=== PATIENT | male | born 1975 | race Hispanic/Latino ===

== ENCOUNTER 2024-04-30 07:46 | Emergency (ER) | payer SELFPAY ==
--- OUTSIDE RECORDS SUMMARY | 2024-04-30 07:51 | XMS REPORT | Continuity of Care Document ---
Author Name Unknown Address [address] [facility] [address] [place] [address] [email or web address] Address [address] [facility] [address] [place] [address] Care Team Providers Care Stucco Plasterer Name Role Phone PCP, PATIENT DOES NOT HAVE A Primary Care Physic lm Unavailable ADELINA VAZQUEZ Attending Clinician Unavailab Adelina Blackwell DO Attending Clinician [phone] OSIRIS DEE Attending Clinician Unavailable Osiris Nevarez Attending Clinician [phone] Jono France MD Attending Clinician [phone] JONO FRANCE Attending Clinician Unavailable ADELINA VAZQUEZ Admitting Clinician Unavailab JONO Trejo Admitting Clinician Unavailable Payers Payer Name Policy Type Policy Number Effective Date Expirati on Date Source MEDICAID ALIEN PENDING PENDING 2022 00:00:00 Problems Condition Name Condition Details Condition Category Status Onset Date Resolution Date Last Treatment Date Treating Clinician Comments Source No known active problems No known active problems Disease [facility] Allergies, Adverse Reactions, Alerts Allergy Name Allergy Type Status Severity Reaction(s) Onset Date Inactive Date Treating Clinician Comments Source NO KNOWN ALLERGIE S Drug Class Active [facility] Social History Social Habit Start Date Stop Date Quantity Comments Source Exposure to SARS-CoV-2 (event) 2022-07-12 00:00:00 2022-07-22 08:12:00 Not sure [facility] Sex Assigned At 1975 00:00:00 1975 00:00:00 [facility] Smoking Status Start Date Stop Date Source Tobacco smoking consumption unknown [facility] Medications Ordered Medication Name Filled Medication Name Start Date Stop Date Current Medication? Ordering Clinician Indication Dosage Frequency Signature (SIG) Comments Components Source ketorolac (TORADOL) injection 30 mg 2021-10 13:45: 00 07-22 12:55 :00 No 30mg 30 mg, Slow IV Push, ONCE, 1 dose, On Mon07/22/22 at 0845, Routine [facility] ketorolac 10 mg tablet 2021-10 00:00: 00 Yes [id number] 10mg Take 1 tablet by mouth every 6 (six) hours as needed for Pain (scale 1-3). [facility] fluticasone propionate 50 mcg/actuati on nasal spray 11-22 00:00: 00 12-07 05:59 :00 No [id number] 2{spray } Use 2 Sprays in each nostril daily for 14 days. [facility] amoxicillin -clavulanat e 875-125 mg per tablet 11-22 00:00: 00 11-30 05:59 :00 No [id number] 1{tbl} Take 1 tablet by mouth every 12 (twelve) hours for 7 days. [facility] ketorolac (TORADOL) injection 30 mg 01-14 18:00: 00 01-14 17:08 :00 No 30mg 30 mg, Slow IV Push, ONCE, 1 dose, Mon01/15/20 at 1300, Routine
bridge crew member approving Restricted medication : JONO FRANCE [facility] acetaminoph en-codeine (TYLENOL-CO DEINE #3) 300-30 mg tablet 01-14 00:00: 00 Yes [id number] 1{tbl} Take 1 tablet by mouth every 6 (six) hours as needed for Pain (scale 4-6). [facility] tamsulosin 0.4 mg 24 hr capsule 01-14 00:00: 00 Yes [id number] .4mg Take 1 capsule by mouth at bedtime. [facility] ketorolac 10 mg tablet 2020-0 4-15 00:00: 00 01-20 04:59 :00 No [id number] 10mg Take 1 tablet by mouth every 6 (six) hours as needed for Pain (scale 4-6) for up to 5 days. [facility] Vital Signs Vital Name Observation Time Observation Value Comments Waqas llamas Systolic blood pressure 2022-07-22 12:49:00 131 mm[Hg] [facility] Diastolic blood pressure 2022-07-22 12:49:00 82 mm[Hg] [facility] Heart rate 2022-07-22 12:49:00 93 /min [facility] Body temperature 2022-07-22 12:49:00 36.67 Sonia [facility] Respiratory rate 2022-07-22 12:49:00 18 /min [facility] Body weight 2022-07-22 12:49:00 69.854 kg [facility] BMI 2022-07-22 12:49:00 25.66 kg/m2 [facility] Oxygen saturation in Arterial blood by Pulse oximetry 2022-07-22 12:49:00 99 /min [facility] Systolic blood pressure 2021-11-22 16:12:00 145 mm[Hg] [facility] Diastolic blood pressure 2021-11-22 16:12:00 86 mm[Hg] [facility] Heart rate 2021-11-22 16:12:00 76 /min [facility] Body temperature 2021-11-22 16:12:00 36.44 Sonia [facility] Respiratory rate 2021-11-22 16:12:00 18 /min [facility] Body weight 2021-11-22 16:12:00 69.854 kg [facility] BMI 2021-11-22 16:12:00 25.66 kg/m2 [facility] Oxygen saturation in Arterial blood by Pulse oximetry 2021-11-22 16:12:00 99 /min [facility] Systolic blood pressure 2020-01-15 18:33:18 131 mm[Hg] [facility] Diastolic blood pressure 2020-01-15 18:33:18 93 mm[Hg] [facility] Heart rate 2020-01-15 18:33:18 67 /min [facility] Respiratory rate 2020-01-15 18:33:18 16 /min [facility] Oxygen saturation in Arterial blood by Pulse oximetry 2020-01-15 18:33:18 97 /min [facility] Body temperature 2020-01-15 16:37:00 36 Sonia [facility] Body height 2020-01-15 16:37:00 165 cm [facility] Body weight 2020-01-15 16:37:00 70 kg [facility] BMI 2020-01-15 16:37:00 25.71 kg/m2 [facility] Procedures Procedure Date / Time Performed Performing Clinician Source CT ABDOMEN PELVIS WO CONTRAST 2022-07-22 13:12:45 Adelina Vazquez [facility] COMP. METABOLIC PANEL ([id number]) 2022-07-22 12:53:00 Adelina Vazquez [facility] CBC WITH DIFF 2022-07-22 12:53:00 [facility]22-07-22 12:53:00 [facility] TREATMENT 2022-07-22 12:44:21 Doctor Unassigned, Kiana [facility] CONSENT/REFUSAL FOR DIAGNOSIS AND TREATMENT 2021-11-22 16:08:38 Doctor Unassigned, Kiana [facility] NOTICE OF PRIVACY PRACTICES 2021-11-22 16:08:13 Doctor Unassigned, Kiana [facility] CT ABDOMEN PELVIS WO CONTRAST 2020-01-15 18:20:32 Jono France [facility] BASIC METABOLIC PANEL (NA, K, CL, CO2, GLUCOSE, BUN, CREATININE, CA) 2020-01-15 17:07:00 Jono France [facility] CBC WITH DIFFERENTIAL 2020-01-15 17:07:00 Jono France [facility] URINALYSIS 2020-01-15 17:02:00 Jono France [facility] Encounters Start Date/Time End Date/Time Encounter Type Admission Type Attending Clinicians Care Facility Care Department Encounter ID Source 2023-11-01 10:52:20 2023-11-01 10:52:20 Outpatient [facility] [id number] Raheel Tejeda 2022-07-22 07:52:00 2022-07-22 09:55:00 Emergency X ADELINA VAZQUEZ [facility] ERT [id number] [facility] 2022-07-22 07:52:00 2022-07-22 09:55:00 Emergency Adelina Vazquez [facility] [id number] [facility] 2021-11-22 10:17:00 2021-11-22 11:22:00 Emergency OSIRIS PEGUERO [facility] ERT [id number] [facility] 2021-11-22 10:17:00 2021-11-22 11:22:00 Emergency Osiris Dee [facility] [id number] [facility] 2020-01-15 11:36:00 2020-01-15 13:45:00 Emergency Jono France [facility] [id number] [facility] 2020-01-15 11:36:00 2020-01-15 13:45:00 Emergency X JONO FRANCE [facility] ERT [id number] [facility] Results Test Description Test Time Test Comments Results Result Co mments Source [facility] [id number] 13:06:45* Test Item Value Reference Range Interpretation Comme nts WBC (test code = 6690-2) See_Comment [Automated messa ge] The system which generated this result transmitted reference range: 4.20 - 10.70 10*3/?L. The reference range was not used to interpret this result as normal/abnormal. RBC (test code = 789-8) See_Comment [Automated [employer]] The system which generated this result transmitted reference range: 4.26 - 5.52 10*6/?L. The reference range was not used to interpret this result as normal/abnormal. HGB (test code = 718-7) 16.0 g/dL 12.2-16.4 HCT (test code = 4544-3) 45.2 % 38.4-49.3 MCV (test code = 787-2) 85.3 fL 81.7-95.6 MCH (test code = 785-6) 30.2 pg 26.1-32.7 MCHC (test code = 786-4) 35.4 g/dL 31.2-35 H RDW-SD (test code = 62569-5) 36.5 fL 38.5-51.6 L RDW-CV (test code = 788-0) 11.8 % 12.1-15.4 L PLT (test code = 777-3) See_Comment [Automated [employer]] The system which generated this result transmitted reference range: 150 - 328 10*3/?L. The reference range was not used to interpret this result as normal/abnormal. MPV (test code = 73379-9) 8.9 fL 9.8-13 L NRBC/100 WBC (test code = 0389984867) See_Comment [Automated [employer] ssage] The system which generated this result transmitted reference range: 0.0 - 10.0 /100 WBCs. The reference range was not used to interpret this result as normal/abnormal. NRBC x10^3 (test code = 1480797796) See_Comment [Automated [employer]] The system which generated this result transmitted reference range: 10*3/?L. The reference range was not used to interpret this result as normal/abnormal. GRAN MAT (NEUT) % (test code = 770-8) 66.8 % IMM GRAN % (test code = 4185831537) 0.30 % LYMPH % (test code = 736-9) 20.5 % MONO % (test code = 5905-5) 8.6 % EOS % (test code = 713-8) 3.0 % BASO % (test code = 706-2) 0.8 % GRAN MAT x10^3(ANC) (test code = 3108705303) 4.04 10*3/uL 1.99-6.95 IMM GRAN x10^3 (test code = 1411448157) 0-0.06 LYMPH x10^3 (test code = 731-0) 1.24 10*3/uL 1.09-3.23 MONO x10^3 (test code = 742-7) 0.52 10*3/uL 0.36-1.02 EOS x10^3 (test code = 711-2) 0.18 10*3/uL 0.06-0.53 BASO x10^3 (test code = 704-7) 0.05 10*3/uL 0.01-0.09 Lab Interpretation (test code = 90261-9) [facility] [id number] 18:24:34CT Abdomen and Pelvis without contrast. CLINICAL HISTORY: Recurrent stone disease is suspected. TECHNIQUE: Multidetector helical CT acquisition was obtained from the lungbases to the greater trochanters without oral and IV contrast. ?The imageswere reviewed in lung, bone, and soft tissue windows. FI NDINGS: ?Absence of intravenous contrast limits evaluation of the solidorgans. Evaluation of the bowel is also limited by lack of oral contrast. Lower lungs: Clear. Liver, Gallbladder and Spleen: Hepatomegaly with mild diffuse hepaticsteatosis. Peritoneum: ?No free air or free fluid. No lymphadenopathy. Pancreas and Adrenals: ?Unremarkable pancreas and adrenal glands. Kidneys and Ureters: No right-sided kidney stones or obstructivehydronephrosis. 5 mm stone noted at left UVJ causing moderate obstructionwith hydronephrosis, hydroureter, mild enlargement of the left kidney,congestion of the perinephric and periureteric fat. No additional stones inthe left kidney.. ? Vessels: Normal. Retroperitoneum: No abnormal fluid or lymphadenopathy. Bowel: No acute findings. Normal appendix is visualized. Bladder ?and Reproductive Organs: Central zone prostate calcifications.Right testicle is located high in the inguinal canal which could be due toprone position. Bones: Shallow Schmorl's nodes in the lower thoracic vertebral endplates,likely as a result of axial loading trauma. Soft tissues: Unremarkable. CONCLUSION:1. 5 mm stone at left UVJ causing moderate obstruction. No additionalstones in the left kidney.2. No right-sided kidney stones or right-sided obstructive hydronephrosis. [facility], Radiant Results Inft User - 01/15/2020 1:25 PM CDTCT Abdomen and Pelvis without contrast.CLINICAL HISTORY: Recurrent stone disease is suspected.TECHNIQUE: Multidetector helical CT acquisition was obtainedfrom the lungbases to the greater trochanters without oral and IV contrast. The imageswere reviewedin lung, bone, and soft tissue windows.FINDINGS: Absence of intravenous contrast limits evaluation of the solidorgans. Evaluation of the bowel is also limited by lack of oral contrast. Lower lungs: Clear.Liver, Gallbladder and Spleen: Hepatomegaly with mild diffuse hepaticsteatosis.Peritoneum: No free air or free fluid. No lymphadenopathy.Pancreas and Adrenals: Unremarkable pancreas and adrenal gl ands.Kidneys and Ureters: No right-sided kidney stones or obstructivehydronephrosis. 5 mm stone noted at left UVJ causing moderate obstructionwith hydronephrosis, hydroureter, mild enlargement of theleft kidney,congestion of the perinephric and periureteric fat. No additional stones inthe left kidney.. Vessels: Normal.Retroperitoneum: No abnormal fluid or lymphadenopathy.Bowel: No acute findings. Normal appendix is visualized.Bladder and Reproductive Organs: Central zone prostate calcifications.Right testicle is located high in the inguinal canal which could be due toprone position. Bones: Shallow Schmorl's nodes in the lower thoracic vertebral endplates,likely as a result of axial loadingtrauma.Soft tissues: Unremarkable.CONCLUSION:1. 5 mm stone at left UVJ causing moderate obstruction. No additionalstones in the left kidney.2. No right-sided kidney stones or right-sided obstructive h ydronephrosis.[facility] [id number] 17:49:00* Test Item Value Reference Range Interpretation Comme nts APPEARANCE (test code = 7356368059) Hazy Clear A COLOR (test code = 4098980923) Yellow Yellow PH (test code = 6099994681) 4.8-8.0 SP GRAVITY (test code = 8381993651) 1.003-1.030 GLU U QUAL (test code = 8294198588) 50 mg/dL Normal A BLOOD (test code = 0075520938) 2+ Negative A KETONES (test code = 0268266964) Negative Negative PROTEIN (test code = 2887-8) 30 mg/dL Negative A UROBILIN (test code = 3160197699) Normal Normal BILIRUBIN (test code = 4928231259) Negative Negative NITRITE (test code = 7167897030) Negative Negative LEUK RICHY (test code = 6072137491) Negative Negative RBC/HPF (test code = 8652250399) See_Comment H [Automated messa ge] The system which generated this result transmitted reference range: 0 - 3 HPF. The reference range was not used to interpret this result as normal/abnormal. WBC/HPF (test code = 7453828559) See_Comment [Automated messa ge] The system which generated this result transmitted reference range: 0 - 5 HPF. The reference range was not used to interpret this result as normal/abnormal. BACTERIA (test code = 1116136870) Few Negative A MUCOUS (test code = 4021119539) Slight Negative LPF A SQ EPITH (test code = 1122276303) HPF UR AC FELIX (test code = 5040054493) See_Comment H [Automated messa ge] The system which generated this result transmitted reference range: <=1 HPF. The reference range was not used to interpret this result as normal/abnormal. HYAL CAST (test code = 1754571423) See_Comment H [Automated messa ge] The system which generated this result transmitted reference range: <=2 LPF. The reference range was not used to interpret this result as normal/abnormal. GRAN CASTS (test code = 5600244254) See_Comment H [Automated messa ge] The system which generated this result transmitted reference range: <=1 LPF. The reference range was not used to interpret this result as normal/abnormal. Lab Interpretation (test code = 12528-4) Abnormal [facility] Metabolic Panel (NA, K, CL, CO2, GLUCOSE, BUN, CREATININE, CA)2020-01-15 17:27:00* Test Item Value Reference Range Interpretation Comme nts NA (test code = 3049560936) 142 mmol/L 135-145 K (test code = 8008557575) 3.9 mmol/L 3.5-5 CL (test code = 0781760166) 108 mmol/L 98-108 CO2 TOTAL (test code = 1120224993) 21 mmol/L 23-31 L AGAP (test code = 4847137840) 2-16 BUN (test code = 9877995488) 10 mg/dL 7-23 GLUCOSE (test code = 7932034170) 195 mg/dL 70-110 H CREATININE (test code = 3577884935) 0.90 mg/dL 0.6-1.25 CALCIUM (test code = 6180893921) 9.1 mg/dL 8.6-10.6 eGFR Calculation (Non-) (test code = 6547842162) mL/min/1.73m2 eGFR Calculation () (test code = 3489757701) mL/min/1.73m2 HUMZA (test code = HUMZA) Association of Glomerular Filtration Rate (GFR) and Staging of Kidney Disease* + --+ --+ ------+| GFR (mL/min/1.73 m2) ?| With Kidney Damage ?| ?Without Kidney Damage+ --------+ --------+ +| ?>90 ?| ?Stage one ?| ? Normal ?+ ---+ ---+ -------+| ?60-89 ?| ?Stage two ?| ? Decreased GFR ? + --+ --+ ------+| ?30-59 ?| ?Stage three ?| ? Stage three ? + --+ --+ ------+| ?15-29 ?| ?Stage four ? | ? Stage four ?+ ---+ ---+ -------+| ?<15 (or dialysis) ? ?| ?Stage five ? | ? Stage five ?+ ---+ ---+ -------+ *Each stage assumes the associated GFR level has been in effect for at least three months. ?Stages 1 to 5, with or without kidney disease, indicate chronic kidney disease. Notes: Determination of stages one and two (with eGFR >59mL/min/1.73 m2) requires estimation of kidney damage for at least three months as defined by structural or functional abnormalities of the kidney, manifested by either:Pathological abnormalities or Markers of kidney damage (including abnormalities in the composition of the blood or urine or abnormalities in imaging tests). Lab Interpretation (test code = 08242-3) Abnormal [facility] WITH [id number] 17:20:00* Test Item Value Reference Range Interpretation Comme nts WBC (test code = 6690-2) See_Comment [Automated messa ge] The system which generated this result transmitted reference range: 4.20 - 10.70 10*3/?L. The reference range was not used to interpret this result as normal/abnormal. RBC (test code = 789-8) See_Comment [Automated messa ge] The system which generated this result transmitted reference range: 4.26 - 5.52 10*6/?L. The reference range was not used to interpret this result as normal/abnormal. HGB (test code = 718-7) 15.6 g/dL 12.2-16.4 HCT (test code = 4544-3) 44.0 % 38.4-49.3 MCV (test code = 787-2) 84.9 fL 81.7-95.6 MCH (test code = 785-6) 30.1 pg 26.1-32.7 MCHC (test code = 786-4) 35.5 g/dL 31.2-35 H RDW-SD (test code = 97500-0) 37.1 fL 38.5-51.6 L RDW-CV (test code = 788-0) 12.1 % 12.1-15.4 PLT (test code = 777-3) See_Comment [Automated messa ge] The system which generated this result transmitted reference range: 150 - 328 10*3/?L. The reference range was not used to interpret this result as normal/abnormal. MPV (test code = 36843-7) 8.5 fL 9.8-13 L NRBC/100 WBC (test code = 4360720955) See_Comment [Automated [employer] ssage] The system which generated this result transmitted reference range: 0.0 - 10.0 /100 WBCs. The reference range was not used to interpret this result as normal/abnormal. NRBC x10^3 (test code = 5120559705) <0.01 See_Comment [Automated messa ge] The system which generated this result transmitted reference range: 10*3/?L. The reference range was not used to interpret this result as normal/abnormal. GRAN MAT (NEUT) % (test code = 770-8) 77.6 % IMM GRAN % (test code = 2407589043) 0.90 % LYMPH % (test code = 736-9) 16.0 % MONO % (test code = 5905-5) 3.8 % EOS % (test code = 713-8) 1.2 % BASO % (test code = 706-2) 0.5 % GRAN MAT x10^3(ANC) (test code = 5125210094) 5.84 10*3/uL 1.99-6.95 IMM GRAN x10^3 (test code = 4573557367) 0.07 10*3/uL 0-0.06 H LYMPH x10^3 (test code = 731-0) 1.21 10*3/uL 1.09-3.23 MONO x10^3 (test code = 742-7) 0.29 10*3/uL 0.36-1.02 L EOS x10^3 (test code = 711-2) 0.09 10*3/uL 0.06-0.53 BASO x10^3 (test code = 704-7) 0.04 10*3/uL 0.01-0.09 Lab Interpretation (test code = 79364-5) Abnormal [facility]"
[2024-04-30 09:07] LABS: Specific Gravity 1.025 (1.005-1.030); Sqamous Epithelial <5 /HPF (None Seen); Urine Bacteria None Seen /HPF (<20); Urine Bilirubin NEGATIVE (Negative); Urine Blood Negative (Negative); Urine Clarity Clear (Clear); Urine Color Yellow (Yellow); Urine Culture Reflex Order NOT NEEDED; Urine Glucose 4+ (Over) (Negative); Urine Ketones NEGATIVE (Negative); Urine Microscopic Reflex YN ORDER UMIC; Urine Mucus Slight /HPF (None Seen); Urine Nitrite NEGATIVE (Negative); Urine Protein TRACE (Negative); Urine RBC <5 /HPF (None Seen); Urine Urobilinogen Normal (Normal); Urine WBC <5 /HPF (<5); Urine pH 5.5 (5.0-7.0)
--- NOTE | 2024-04-30 10:18 | ER ---
Nurse's Notes [facility] Name: Dash Auguste Age: 49 yrs Sex: Male : 1975 Arrival Date: 04/30/2024 Time: 07:46 Bed 18 Private MD: Diagnosis: Balanitis;Hyperglycemia, unspecified Presentation: 04/30 08:01 Chief complaint: Patient states: Reports pain to private area and "there's something ll1 down there". No fever or N/V/D. Coronavirus screen: Client denies travel out of the [place] in the last 14 days. At this time, the client does not indicate any symptoms associated with coronavirus-19. Ebola Screen: Patient denies travel to an Ebola-affected area in the 21 days before illness onset. Initial Sepsis Screen: Does the patient meet any 2 criteria? No. Patient's initial sepsis screen is negative. Does the patient have a suspected source of infection? No. Patient's initial sepsis screen is negative. Risk Assessment: Do you want to hurt yourself or someone else? Patient reports no desire to harm self or others. 08:01 Method Of Arrival: Ambulatory ll1 08:01 Acuity: HERMAN 4 ll1 Historical: - Allergies: 08:04 No Known Allergies; ll1 - PMHx: 08:04 None; ll1 - PSHx: 08:04 None; ll1 - Immunization history:: Adult Immunizations up to date. - Social history:: Smoking status: Patient denies any tobacco usage or history of. Screenin:20 [facility] ED Fall Risk Assessment (Adult) History of falling in the last 3 months, kc6 including since admission No falls in past 3 months (0 pts) Confusion or Disorientation No (0 pts) Intoxicated or Sedated No (0 pts) Impaired Gait No (0 pts) Mobility Assist Device Used No (0 pt) Altered Elimination No (0 pt) Score/Fall Risk Level 0 - 2 = Low Risk. Abuse screen: Denies threats or abuse. Denies injuries from another. Nutritional screening: No deficits noted. Tuberculosis screening: No symptoms or risk factors identified. Assessment: 08:18 General: Appears in no apparent distress. comfortable, well groomed, well developed, kc6 Behavior is calm, cooperative, appropriate for age. Pain: Complains of pain in pelvis. Neuro: Level of Consciousness is awake, alert, obeys commands, Oriented to person, place, time, situation, Appropriate for age. Cardiovascular: Capillary refill < 3 seconds. Respiratory: Airway is patent Trachea midline Respiratory effort is even, unlabored, Respiratory pattern is regular, symmetrical. GI: No signs and/or symptoms were reported involving the gastrointestinal system. : Reports pain scrotum, testicle. EENT: No signs and/or symptoms were reported regarding the EENT system. Derm: Reports redness to the penile tip. Musculoskeletal: No signs and/or symptoms reported regarding the musculoskeletal system. Circulation, motion, and sensation intact. Capillary refill < 3 seconds, Range of motion: intact in all extremities. 09:27 Reassessment: Patient appears in no apparent distress at this time. No changes from kc6 previously documented assessment. Patient and/or family updated on plan of care and expected duration. Pain level reassessed. Patient is alert, oriented x 3, equal unlabored respirations, skin warm/dry/pink. 10:36 Reassessment: Patient appears in no apparent distress at this time. No changes from kc6 previously documented assessment. Patient and/or family updated on plan of care and expected duration. Pain level reassessed. Patient is alert, oriented x 3, equal unlabored respirations, skin warm/dry/pink. Vital Signs: 08:01 BP 134 / 99; Pulse 64; Resp 16; Temp 98.8; Pulse Ox 98% on R/A; Height 5 ft. 2 in. ; ll1 Pain 6/10; 10:36 BP 130 / 85; Pulse 70; Resp 16 S; Pulse Ox 100% on R/A; kc6 08:01 Pain Scale: Adult ll1 ED Course: 07:50 Patient arrived in ED. mr 07:57 Nel Roman, RN is Primary Nurse. kc6 07:57 Echo Hebert MD is Attending Physician. sd2 08:04 Triage completed. ll1 08:04 Arm band placed on. ll1 08:19 Patient has correct armband on for positive identification. Bed in low position. Call kc6 light in reach. Side rails up X 1. Pulse ox on. NIBP on. Warm blanket given. Pillow given. 08:19 Assist provider with pelvic exam: Performed by Echo Hebert MD Patient tolerated kc6 well. 08:27 GC (Andry/Chl) Probe URINE Sent. kc6 08:27 Urinalysis w/ reflexes Sent. kc6 10:35 Patient did not have IV access during this emergency room visit. kc6 Administered Medications: No medications were administered Medication: 10:35 VIS not applicable for this client. kc6 Outcome: 10:18 Discharge ordered by . sd2 10:35 Discharged to home ambulatory, with family, kc6 10:35 Condition: good 10:35 Discharge instructions given to patient, family, Instructed on discharge instructions, follow up and referral plans. medication usage, safe sex practices, Demonstrated understanding of instructions, follow-up care, medications, Prescriptions given X 1, 10:36 Patient left the ED. kc6 Signatures: Opal Auguste, Rick Caberra mr Avery Covarrubias, RN RN ll1 Echo Hebert MD MD sd2 Nel Roman RN RN kc6 Corrections: (The following items were deleted from the chart) 08:04 08:04 Allergies: No Known Allergies; ll1 ll1 08:04 08:04 PMHx: None; ll1 ll1 08:04 08:04 PSHx: Unable to Obtain; ll1 ll1
--- NOTE | 2024-04-30 10:18 | EDPHYS ---
Physician Documentation [facility] Name: Dash Auguste Age: 49 yrs Sex: Male : 1975 Arrival Date: 04/30/2024 Time: 07:46 Bed 18 Private MD: ED Physician Echo Hebert HPI: 04/30 10:14 This 49 yrs old Male presents to ER via Ambulatory with complaints of Personal sd2 problem. 10:14 49 yo M presents with CC of dysuria and discharge around the head of his penis that has sd2 been ongoing for the past 2 weeks. Denies any rash or other changes. No sexual activity he reports in 10 years. Denies chance of STI. . Historical: - Allergies: 08:04 No Known Allergies; ll1 - PMHx: 08:04 None; ll1 - PSHx: 08:04 None; ll1 - Immunization history:: Adult Immunizations up to date. - Social history:: Smoking status: Patient denies any tobacco usage or history of. ROS: 10:14 Constitutional: Negative for fever, chills, and weight loss, : Positive for dysuria, sd2 Negative for frequency or hematuria. MS/Extremity: Negative for injury and deformity, Skin: Negative for injury, rash, and discoloration, Exam: 10:14 Constitutional: This is a well developed, well nourished patient who is awake, alert, sd2 and in no acute distress. Head/Face: Normocephalic, atraumatic. Abdomen/GI: Soft, non-tender, with normal bowel sounds. No guarding or rebound. No evidence of tenderness throughout. Male : White discharge consistent with yeast noted to head of penis once foreskin pulled back. No scrotal swelling or edema. RN studio set up worker, Miriam, used during exam Skin: Warm, dry with normal turgor. Normal color with no rashes, no lesions, and no evidence of cellulitis. Vital Signs: 08:01 BP 134 / 99; Pulse 64; Resp 16; Temp 98.8; Pulse Ox 98% on R/A; Height 5 ft. 2 in. ; ll1 Pain 6/10; 10:36 BP 130 / 85; Pulse 70; Resp 16 S; Pulse Ox 100% on R/A; kc6 08:01 Pain Scale: Adult ll1 MDM: 07:57 Patient medically screened. sd2 10:14 Differential Diagnosis balanitis, STI, UTI among others. Data reviewed: vital signs, sd2 nurses notes, lab test result(s). Historians other than the Patient: Daughter/Son: Son at acts as foreign language interpreter. Counseling: I had a detailed discussion with the patient and/or guardian regarding the historical points, exam findings, and any diagnostic results supporting the discharge/admit diagnosis, lab results, the need for outpatient follow up, to return to the emergency department if symptoms worsen or persist or if there are any questions or concerns that arise at home. ED course: Labs reviewed. UA without clear infection but glucosuria present. BGL 180 fasting. Advised follow up with a PCP regarding his blood sugar. Will place on clotrimazole at this time. Pt verbalizes understanding of discharge plan and strict return precautions.. 04/30 08:19 Order name: Urinalysis w/ reflexes; Complete Time: 09:21 sd2 04/30 08:19 Order name: GC (Andry/Chl) Probe URINE sd2 04/30 10:01 Order name: Glucose, Ancillary Testing EDMS 04/30 09:39 Order name: Glucose Level; Complete Time: 09:51 sd2 Administered Medications: No medications were administered Disposition Summary: 04/30/24 10:18 Discharge Ordered Notes: Location: Home sd2 Problem: new sd2 Symptoms: are unchanged sd2 Condition: Stable sd2 Diagnosis - Balanitis sd2 - Hyperglycemia, unspecified sd2 Followup: sd2 - With: Private Physician - When: 2 - 3 days - Reason: Recheck today's complaints, Continuance of care, Re-evaluation by your physician Discharge Instructions: - Discharge Summary Sheet sd2 - Balanitis sd2 - Hyperglycemia sd2 Forms: - Medication Reconciliation Form sd2 - Antibiotic Education sd2 - Prescription Opioid Use sd2 - Patient Portal Instructions sd2 - Leadership Thank You Letter sd2 Prescriptions: - Clotrimazole 1 % Topical cream - Apply to affected area 1 application TOPICAL route every 12 hours for 14 days; sd2 15 gram; Refills: 0, Product Selection Permitted Signatures: [facility] Avery Covarrubias RN RN ll1 Echo Hebert MD MD sd2 Corrections: (The following items were deleted from the chart) 08:04 08:04 Allergies: No Known Allergies; ll1 ll1 08:04 PMHx: None; ll1 ll1 08:04 PSHx: Unable to Obtain; ll1 ll1
[2024-04-30 10:46] VITALS: TEMP 98.8
[2024-04-30 10:47] VITALS: BP 130/85; O2SAT 100
[2024-05-03 12:02] LABS: C.trachomatis RNA,TMA Not Detected (Not Detected); N.gonorrhoeae RNA,TMA Not Detected (Not Detected)
== END 2024-04-30 10:36 | disposition home or self-care (01) ==
LOC: ER 07:46
DX: N48.1 Balanitis (principal); R73.9 Hyperglycemia, unspecified
CPT/HCPCS: 81001; 82947; 87490; 87590; 99284